=== PATIENT | female | born 1955 | race Caucasian/White ===

== ENCOUNTER 2020-10-03 13:50 | Outpatient (CLI) | payer MEDICARE | END 2020-10-03 13:51 | disposition home or self-care (01) | LOC: CSHMAMMO 13:50 | PROVIDERS: ATTEND Family Medicine | DX: Z12.31 Encounter for screening mammogram for malignant neoplasm of breast (principal); Z13.820 Encounter for screening for osteoporosis; M85.89 Other specified disorders of bone density and structure, multiple sites | CPT/HCPCS: 77063; 77067; 77080 ==

== ENCOUNTER 2020-10-17 13:21 | Outpatient (CLI) | payer MEDICARE | END 2020-10-17 13:22 | disposition home or self-care (01) | LOC: CSHMRI 13:21 | PROVIDERS: ATTEND Family Medicine | DX: M51.9 Unspecified thoracic, thoracolumbar and lumbosacral intervertebral disc disorder (principal); M54.16 Radiculopathy, lumbar region; M47.816 Spondylosis without myelopathy or radiculopathy, lumbar region; M51.27 Other intervertebral disc displacement, lumbosacral region; M48.07 Spinal stenosis, lumbosacral region | CPT/HCPCS: 72148 ==

== ENCOUNTER 2021-07-15 11:48 | Outpatient (CLI) | payer MEDICARE ==
[2021-07-16 11:50] LABS: SARS-CoV-2 PCR by NAA Not Detected (NotDetected)
== END 2021-07-15 11:49 | disposition home or self-care (01) ==
LOC: CSHLAB 11:48
PROVIDERS: ATTEND Internal Medicine Gastroenterology
DX: Z20.822 Contact with and (suspected) exposure to COVID-19 (principal); Z12.11 Encounter for screening for malignant neoplasm of colon
CPT/HCPCS: U0003; U0005

== ENCOUNTER 2021-07-18 06:22 | Day surgery (SDC) | payer MEDICARE ==
[2021-07-09 13:47] VITALS: BMI 27.3
[2021-07-18] MEDS ORDERED: Lidocaine 1% MPF 2 ML VIAL ONE (07:39)
[2021-07-18] MEDS ORDERED: Ondansetron PF 4 MG/2 ML Vial ONE (07:53)
[2021-07-18] MEDS ORDERED: PROPOFOL 40 ML ONE (08:43)
[2021-07-18] MEDS ORDERED: Simethicone 40 MG/0.6 ML Drop 30 ML BOT ONE (09:00)
[2021-07-18] MEDS ORDERED: PROPOFOL 20 ML ONE (09:20)
[2021-07-18] MEDS ORDERED: Esmolol 100 MG/10 ML VIAL ONE (09:28)
== END 2021-07-18 10:10 | disposition home or self-care (01) ==
LOC: CSHSDC 06:22
PROVIDERS: ATTEND Internal Medicine Gastroenterology
PROC: 0DBN8ZZ Excision of Sigmoid Colon, Via Natural or Artificial Opening Endoscopic (ICD-10-PCS; principal; 2021-07-18)
DX: R19.7 Diarrhea, unspecified (principal); K63.5 Polyp of colon; K50.90 Crohn's disease, unspecified, without complications; K57.30 Diverticulosis of large intestine without perforation or abscess without bleeding; K64.9 Unspecified hemorrhoids
CPT/HCPCS: 88305; J2405; J2704

== ENCOUNTER 2022-02-05 13:30 | Outpatient (CLI) | payer MEDICARE | END 2022-02-05 13:31 | disposition home or self-care (01) | LOC: CSHMAMMO 13:30 | PROVIDERS: ATTEND Family Medicine | DX: Z12.31 Encounter for screening mammogram for malignant neoplasm of breast (principal); Z80.3 Family history of malignant neoplasm of breast | CPT/HCPCS: 77063; 77067 ==

== ENCOUNTER 2023-01-19 20:37 | Observation (INO) | payer MEDICARE ==
[2023-01-19] MEDS ORDERED: Calcium Carbonate 500 MG ChewTAB PO PRN (23:09)
[2023-01-19] MEDS ORDERED: Acetaminophen 325 MG TAB PO PRN (23:09)
[2023-01-19] MEDS ORDERED: Ondansetron PF 4 MG/2 ML Vial IVP PRN (23:09)
[2023-01-19] MEDS ORDERED: Zolpidem Tartrate 5 MG TAB PO PRN (23:09)
[2023-01-19 23:28] VITALS: BMI 27.4
[2023-01-19] MEDS ORDERED: Lactated Ringer's 500 ML IV SCH (23:59)
[2023-01-20 06:06] LABS: Anion Gap 17 mmol/L (10-20); BUN (Urea Nitrogen) 13 mg/dL (9.8-20.1); Calc. Creatinine Clearance 70 mL/min (70-130); Calcium 9.9 mg/dL (7.8-10.44); Carbon Dioxide 23 mmol/L (23-31); Cardiac Risk 4.2 (Less than 4.5); Chloride 106 mmol/L (98-107); Cholesterol 203 mg/dl (< 200 Desired); Estimated GFR 72; Glucose 102 mg/dL (80-115); HDL Cholesterol 48 mg/dL (>60 Neg Risk); LDL Cholesterol, Calculated 84 mg/dL; Potassium 4.2 mmol/L (3.5-5.1); Sodium 142 mmol/L (136-145); Triglycerides 354 mg/dL (Less than 150)
[2023-01-20 06:23] LABS: Thyroid Stimulating Hormone 1.7947 uIU/mL (0.35-4.94)
[2023-01-20] MEDS ORDERED: Cyanocobalamin (Vitamin B-12) 1,000 MCG TAB PO SCH (09:00)
[2023-01-20] MEDS ORDERED: Aspirin 81 mg Enteric Coated Tablet PO SCH (09:00)
[2023-01-20] MEDS ORDERED: Escitalopram Oxalate 10 mg Tablet PO SCH (09:00)
[2023-01-20] MEDS ORDERED: Cholestyramine/Aspartame 4 gm Packet PO SCH (11:00)
[2023-01-20 16:52] LABS: Hemoglobin A1c 5.4 % (4.0-6.0)
[2023-01-20 17:03] VITALS: BP 112/55; TEMP 98.2
[2023-01-20] MEDS ORDERED: Atorvastatin Calcium 40 MG TAB PO SCH (21:00)
[2023-01-20] MEDS ORDERED: Atorvastatin Calcium 20 MG TAB PO SCH (21:00)
== END 2023-01-20 18:45 | disposition home or self-care (01) ==
LOC: INTOOBSV 21:31 → CSHTELE 21:31
PROVIDERS: ADMIT Student in an Organized Health Care Education/Training Program; ATTEND Hospitalist
DX: I63.9 Cerebral infarction, unspecified (principal); I08.8 Other rheumatic multiple valve diseases; R29.6 Repeated falls; K90.9 Intestinal malabsorption, unspecified; I10 Essential (primary) hypertension; E78.5 Hyperlipidemia, unspecified; F41.9 Anxiety disorder, unspecified; E78.00 Pure hypercholesterolemia, unspecified; Z79.899 Other long term (current) drug therapy; Z79.82 Long term (current) use of aspirin; Z91.041 Radiographic dye allergy status; Z90.49 Acquired absence of other specified parts of digestive tract
CPT/HCPCS: 70551; 72148; 80048; 80061; 82607; 83036; 83735; 84443; 93306; 93880; 97116; 97535; G0378 ×2; G0379; 36415; J7120

== ENCOUNTER 2023-03-10 12:53 | Outpatient (CLI) | payer MEDICARE | END 2023-03-10 12:54 | disposition home or self-care (01) | LOC: CSHMAMMO 12:53 | PROVIDERS: ATTEND Family Medicine | DX: Z12.31 Encounter for screening mammogram for malignant neoplasm of breast (principal); Z80.3 Family history of malignant neoplasm of breast | CPT/HCPCS: 77063; 77067 ==

== ENCOUNTER 2024-03-24 09:34 | Outpatient (CLI) | payer MEDICARE | END 2024-03-24 09:35 | disposition home or self-care (01) | LOC: CSHMAMMO 09:34 | PROVIDERS: ATTEND Nurse Practitioner Family | DX: M85.89 Other specified disorders of bone density and structure, multiple sites (principal); M81.0 Age-related osteoporosis without current pathological fracture | CPT/HCPCS: 77080 ==

== ENCOUNTER 2024-05-04 13:32 | Outpatient (CLI) | payer MEDICARE | END 2024-05-04 13:33 | disposition home or self-care (01) | LOC: CSHULT 13:32 | PROVIDERS: ATTEND Psychiatry & Neurology Sleep Medicine | DX: I63.9 Cerebral infarction, unspecified (principal); R93.1 Abnormal findings on diagnostic imaging of heart and coronary circulation; I67.89 Other cerebrovascular disease | CPT/HCPCS: 70551; 93306 ==

== ENCOUNTER 2024-07-13 13:42 | Outpatient (CLI) | payer MEDICARE | END 2024-07-13 13:43 | disposition home or self-care (01) | LOC: CSHMRI 13:42 | PROVIDERS: ATTEND Psychiatry & Neurology Sleep Medicine | DX: I65.23 Occlusion and stenosis of bilateral carotid arteries (principal) | CPT/HCPCS: 70544; 70547 ==

== ENCOUNTER 2025-03-24 12:33 | Outpatient (CLI) | payer MEDICARE | END 2025-03-24 12:34 | disposition home or self-care (01) | LOC: CSHMAMMO 12:33 | PROVIDERS: ATTEND Family Medicine | DX: Z12.31 Encounter for screening mammogram for malignant neoplasm of breast (principal); Z80.3 Family history of malignant neoplasm of breast | CPT/HCPCS: 77063; 77067 ==